=== PATIENT | male | born 1980 | race Caucasian/White ===

== ENCOUNTER 2024-01-03 00:36 | Emergency (ER) | payer SELFPAY ==
[2024-01-03 00:36] VITALS: BMI 32.1
--- NOTE | 2024-01-03 00:55 | ECG_ITS ---
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
--- NOTE | 2024-01-03 00:58 | ED_ITS ---
HPI - Chest Pain 2 General: Chief Complaint: Chest Pain Stated Complaint: Shoulder and Neck Pain Time Seen by Provider: 01/03/24 00:43 History of Present Illness: Healthy 43-year-old man presents the emergency room with neck and shoulder pain and concern for a cardiac event. This started yesterday. Says he has been feeling achy all over but his is concerned this might be his heart. No real chest pain. No abdominal pain. No nausea or vomiting. Review of Systems 2 Narrative: Constitutional symptoms: Negative except as documented in HPI. Skin symptoms: Negative except as documented in HPI. Eye symptoms: Negative except as documented in HPI. ENMT symptoms: Negative except as documented in HPI. Respiratory symptoms: Negative except as documented in HPI. Cardiovascular symptoms: Negative except as documented in HPI. Gastrointestinal symptoms: Negative except as documented in HPI. Genitourinary symptoms: Negative except as documented in HPI. Musculoskeletal symptoms: Negative except as documented in HPI. Neurologic symptoms: Negative except as documented in HPI. Psychiatric symptoms: Negative except as documented in HPI. Endocrine symptoms: Negative except as documented in HPI. Physical Exam 2 Narrative: EXAM NARRATIVE: General: Alert, no acute distress. Skin: Warm, dry. Head: Normocephalic, atraumatic. Neck: Supple, trachea midline. Eye: Extraocular movements are intact. Ears, nose, mouth and throat: mucosa moist. Cardiovascular: Regular, Normal peripheral perfusion. Respiratory: Lungs are clear to auscultation, respirations are non-labored, breath sounds are equal, Symmetrical chest wall expansion. Gastrointestinal: Soft, Nontender, Non distended Musculoskeletal: Normal ROM, no deformity. Neurological: Alert and oriented, No focal neurological deficit observed. Psychiatric: Cooperative, appropriate mood and affect MDM - Chest Pain Medical Decision Making Differential diagnosis for patient with chest pain equivalent includes but is not limited to and based on the above HPI, review of systems and physical exam: Pneumonia. unstable angina. angina. Acute coronary syndrome / OK. Pulmonary embolism. Costochondritis / musculoskeletal. Pleurisy. Pericarditis. Esophageal spasm. Pancreatis. Cholecystitis. Orders placed to evaluate differential diagnosis based on the above differential, HPI and physical exam EK. Rate 87. Normal sinus rhythm, No ST-T changes, no ectopy, right bundle branch block, This was reviewed and interpreted by myself the ER physician at 0100 Lab Review: Laboratory results were reviewed and interpreted by myself the emergency room physician. Normal lab work. Troponin negative. Symptoms are not typical of cardiac chest pain and have been present for over a day so I do not feel like a second troponin is necessary tonight. Respiratory panel is negative for Chest x-ray: No acute process. No infiltrate. No pneumothorax. This was reviewed and interpreted by myself the ER physician. I reviewed the patient's medical record. Reexamination: Patient remained stable. No increased work of breathing. No altered mental status. No focal motor deficits. Assessment and plan: Hypertension Shoulder pain ?Patient says his blood pressure is usually up 0.8 goes into the doctor's office. He will follow-up and check blood pressure at home. - Discharged home - Discussed plan with patient. Answered any questions. - Evaluation and treatment of this problem were appropriate in the emergency setting. Lab Data 01/03/24 01:07 01/03/24 01:07 Laboratory Results WBC 7.19 10^3/uL (3.29-11.43) 01/03/24 01:07 RBC 5.77 10^6/uL (3.85-5.65) H 01/03/24 01:07 Hgb 16.10 g/dL (11.27-16.99) 01/03/24 01:07 Hct 48.7 % (37-53) 01/03/24 01:07 MCV 84.4 fl (82-101) 01/03/24 01:07 MCH 27.9 pg (27-33) 01/03/24 01:07 MCHC 33.1 g/dL (30-55) 01/03/24 01:07 RDW 12.6 % (12.1-15.1) 01/03/24 01:07 Plt Count 212 10^3/cmm (157-399) 01/03/24 01:07 MPV 10.3 fL (7.4-10.4) 01/03/24 01:07 Neut % (Auto) 59.5 % 01/03/24 01:07 Lymph % (Auto) 28.2 % 01/03/24 01:07 [place] % (Auto) 9.9 % 01/03/24 01:07 Eos % (Auto) 1.9 % 01/03/24 01:07 Baso % (Auto) 0.4 % 01/03/24 01:07 Neut # (Auto) 4.27 10^3/uL (1.8-7.7) 01/03/24 01:07 Lymph # (Auto) 2.0 10^3/uL (0.8-4.8) 01/03/24 01:07 [place] # (Auto) 0.7 10^3/uL (0.2-0.9) 01/03/24 01:07 Eos # (Auto) 0.1 10^3/uL (0.0-0.8) 01/03/24 01:07 Baso # (Auto) 0.0 10^3/uL (0.0-0.1) 01/03/24 01:07 Nucleated RBC % (auto) 0 % 01/03/24 01:07 Nucleated RBCs # 0.0 /100WBC 01/03/24 01:07 Sodium 139 mmol/L (136-145) 01/03/24 01:07 Potassium 4.2 mmol/L (3.5-5.1) 01/03/24 01:07 Chloride 103 mmol/L (98-107) 01/03/24 01:07 Carbon Dioxide 26 mmol/L (22-29) 01/03/24 01:07 Anion Gap 14.2 (5-19) 01/03/24 01:07 BUN 18 mg/dL (6-20) 01/03/24 01:07 Creatinine 0.9 mg/dL (0.7-1.2) 01/03/24 01:07 GFR Calculation 91.7 mL/min (90-130) 01/03/24 01:07 Glucose 110 mg/dL (65-115) 01/03/24 01:07 Calculated Osmolality 291 mOsm/kg (285-295) 01/03/24 01:07 Calcium 8.5 mg/dL (8.5-10.5) 01/03/24 01:07 Total Bilirubin 0.7 mg/dL (0.15-1.2) 01/03/24 01:07 AST 28 U/L (0-40) 01/03/24 01:07 ALT 32 U/L (0-41) 01/03/24 01:07 Alkaline Phosphatase 98 U/L (40-130) 01/03/24 01:07 Troponin T Baseline 9 ng/L (0-15) 01/03/24 01:07 C-Reactive Protein 7.7 mg/L (0.0-4.9) H 01/03/24 01:07 Total Protein 7.0 g/dL (6.6-8.7) 01/03/24 01:07 Albumin 4.6 g/dL (3.5-5.2) 01/03/24 01:07 Globulin 2.4 g/dL (1.3-4.6) 01/03/24 01:07 Coronavirus (PCR) Negative (Negative) 01/03/24 01:28 Influenza A (PCR) Negative (Negative) 01/03/24 01:28 Influenza Type B (PCR) Negative (Negative) 01/03/24 01:28 RSV (PCR) Negative (Negative) 01/03/24 01:28 XR interpretation done by ED provider, pending radiology final review Discharge Plan Discharge Patient Disposition: Home Clinical Impression: Shoulder pain Condition: Stable Discharge Orders: Discharge ED (Routine); Ordered 01/03/24 Ordered By: Isaura Franco Discharge Diet: Usual diet Discharge Activity: Increase activity as tolerated Patient Instructions: Thoracic Pain (ED), Noncardiac Chest Pain (ED) Activity Restrictions/Additional Instructions: Thank you for choosing [facility] for your healthcare needs today. Please realize this is an emergency room and that we are providing you with a medical screening exam and this may not be complete and all inclusive of all the testing and or work up that you may need to determine your ailment or severity of your illness. You have been screened and evaluated and felt safe for discharge. Health conditions do change or evolve sometimes and as such it is important that you follow up with your Primary Doctor to be re checked, 3-5 days is a general good time frame for follow up. 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
[2024-01-03 01:13] LABS: Basophils % 0.4 %; Eosinophils # 0.1 10^3/uL (0.0-0.8); Eosinophils % 1.9 %; Hematocrit 48.7 % (37-53); Lymphocytes % 28.2 %; Mean Corpuscular HGB Conc 33.1 g/dL (30-55); Mean Corpuscular Hemoglobin 27.9 pg (27-33); Mean Corpuscular Volume 84.4 fl (82-101); Mean Platelet Volume 10.3 fL (7.4-10.4); Monocytes # 0.7 10^3/uL (0.2-0.9); Monocytes % 9.9 %; Neutrophils # 4.27 10^3/uL (1.8-7.7); Neutrophils % 59.5 %; Nucleated Red Blood Cells % 0 %; Platelet Count 212 10^3/cmm (157-399); Red Blood Count 5.77 10^6/uL (3.85-5.65); Red Cell Distribution Width 12.6 % (12.1-15.1); White Blood Count 7.19 10^3/uL (3.29-11.43)
--- NOTE | 2024-01-03 01:15 | XRR_ITS ---
PROCEDURE INFORMATION: Exam: XR Chest Exam date and time: 01/03/2024 1:32 AM Age: 43 years old Clinical indication: Other: Chest, neck and shoulder pain, no injury; Additional info: Chest pain TECHNIQUE: Imaging protocol: Radiologic exam of the chest. Views: 1 view. COMPARISON: No relevant prior studies available. FINDINGS: Lungs: Minimal left lower lobe atelectasis. No consolidation. Pleural spaces: Unremarkable. No pleural effusion. No pneumothorax. Heart/Mediastinum: Unremarkable. No cardiomegaly. Bones/joints: Unremarkable. XR/XR chest 1V portable [id number] IMPRESSION: No acute findings.
[2024-01-03 01:26] VITALS: BP 163/94; PULSE 82; O2SAT 94
[2024-01-03 01:31] LABS: Troponin(5th) Baseline 9 ng/L (0-15)
[2024-01-03 01:32] LABS: Alanine Aminotransferase 32 U/L (0-41); Albumin Level 4.6 g/dL (3.5-5.2); Alkaline Phosphatase 98 U/L (40-130); Aspartate Amino Transferase 28 U/L (0-40); Blood Urea Nitrogen 18 mg/dL (6-20); C Reactive Protein 7.7 mg/L (0.0-4.9); Calcium 8.5 mg/dL (8.5-10.5); Carbon Dioxide 26 mmol/L (22-29); Chloride 103 mmol/L (98-107); Creatinine Clr Calc Pharmacy 128.7561; Globulin 2.4 g/dL (1.3-4.6); Glomerular Filtration Rate 91.7 mL/min (90-130); Glucose 110 mg/dL (65-115); Osmolality Calculated 291 mOsm/kg (285-295); Sodium 139 mmol/L (136-145); Total Bilirubin 0.7 mg/dL (0.15-1.2)
[2024-01-03 01:45] VITALS: BP 168/108; PULSE 79; O2SAT 98
[2024-01-03 01:45] LABS: Anion Gap 14.2 (5-19); Potassium 4.2 mmol/L (3.5-5.1)
[2024-01-03 02:06] LABS: Covid PCR NEGATIVE (Negative); Influenza A NEGATIVE (Negative); Influenza B NEGATIVE (Negative); Respiratory Syncytial Virus Ce NEGATIVE (Negative)
[2024-01-03 02:15] VITALS: BP 154/104; PULSE 65; O2SAT 98
[2024-01-03] MEDS: ketorolac 30 mg/mL INJ IVP (02:41)
[2024-01-03 02:52] VITALS: BP 168/102; PULSE 75; O2SAT 98
== END 2024-01-03 02:53 | disposition home or self-care (01) ==
PROVIDERS: Emergency Provider Emergency Medicine
DX: M25.519 Pain in unspecified shoulder (principal); I45.10 Unspecified right bundle-branch block; Z11.52 Encounter for screening for COVID-19
CPT/HCPCS: 0241U; 71045; 80053; 84484; 85025; 86140; 93005; 96374; 99285; J1885

== ENCOUNTER 2024-09-18 06:55 | Emergency (ER) | payer SELFPAY ==
[2024-09-18 07:06] VITALS: BP 204/135; PULSE 96; RESP 17; TEMP 37; O2SAT 98; BMI 34.8
--- NOTE | 2024-09-18 07:22 | W.ED.SKABFB ---
HPI - Skin/Abscess/Foreign Bdy General: Chief complaint: Skin/Abscess/Foreign Body Stated complaint: lt arm inj Time Seen by Provider: 09/18/24 06:57 History of Present Illness: 44-year-old male presents emergency room complaining of a large blister on forearm along the ulnar ridge. Patient has been here for a while history of various treatments he has been on [id number] antibiotics started off with significant pimple he put some topical garlic ointment on and developed blister. Associated symptoms: Deny chills or fever(s) Related Data Previous Rx's ?Medication ?Instructions ?Recorded mupirocin 2 % topical ointment 1 applic topical BID #15 grams 09/18/24 ([facility]) Allergies Allergy/AdvReac Type Severity Reaction Status Date / Time No Known Allergies Allergy Verified 09/18/24 07:08 Review of Systems Const: Denies: fever(s) or chills Card: Denies: chest pain Resp: Denies: dyspnea Musc: Denies: neck pain or back pain Skin/Breast: Reports: rash Physical Exam Const: COMMON NORMALS: no acute distress GENERAL APPEARANCE: cooperative and comfortable ORIENTATION/CONSCIOUSNESS: Yes awake, Yes oriented to person, Yes oriented to place and Yes oriented to time HENMT: COMMON NORMALS: normocephalic, atraumatic and hearing grossly normal bilaterally HEAD & SCALP: normocephalic and atraumatic Resp: COMMON NORMALS: normal respiratory effort, No retractions, No use of accessory muscles and clear to auscultation bilaterally AUSCULTATION: clear to auscultation bilaterally Cardio: COMMON NORMALS: regular rate, regular rhythm and No murmurs present (Cardio) RATE: regular rate RHYTHM: regular rhythm Extremity: COMMON NORMALS: normal to inspection, capillary refill normal, no clubbing, cyanosis or edema, no calf tenderness and no pedal edema Neuro: SENSORIUM/ORIENTATION: Yes oriented to person, Yes oriented to place and Yes oriented to time Skin: OTHER: Solitary vesicles slightly reddened edges at the center is a open comedone is mildly inflamed no. Draining Procedures Abscess I/D Site: upper extremity Side (if applicable): left Technique: other (Incised with the bevel of 18-gauge needle) Amount of fluid expressed (mL): 3 Packing used?: none Course Vital Signs: Vital signs: Vital Signs Temperature 98.6 F 09/18/24 07:06 Pulse Rate 96 09/18/24 07:06 Respiratory Rate 17 09/18/24 07:06 Blood Pressure 204/135 09/18/24 07:06 Pulse Oximetry 98 09/18/24 07:06 Oxygen Delivery Me thod Room Air 09/18/24 07:06 MDM - Skin/Abscess/Foreign Bdy Medicial Decision Making Blister in the removed and drained culture obtained. Comedone drained. Patient has other small open comedones noninflamed in the region. 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 Think the vesicles from chemical irritant from the topical garlic solution he was putting on it. Of asked him to avoid garlic solution culture was done we will start him on mupirocin to the area follow-up with his primary care doctor as needed Medical Records I reviewed the patient's medical records. Lab Data I reviewed the patient's lab results. No radiology studies performed this visit Discharge Plan Discharge Patient Disposition: Home Clinical Impression: Open comedone, Chemical burn of left forearm Condition: Stable Prescriptions: New mupirocin [Centany] 2 % ointment 1 applic topical BID Qty: 15 0RF Discharge Orders: Discharge ED (Routine); Ordered 09/18/24 Ordered By: Vinny Carcamo Discharge Diet: Usual diet Discharge Activity: Resume usual activity Patient Instructions: Opioid Safety, Pain Management, Patient Portal & Sandeep Instructions Activity Restrictions/Additional Instructions: Thank you for choosing [facility] for your healthcare needs today. It is very important that you follow up as instructed or that you return to the Emergency Department should you have concerns or if your condition changes or worsens in any way. You were seen in the emergency room with complaint of irritation on your left forearm. The blistering is likely a chemical burn reaction to the topical garlic that you were using. Would avoid using this topical medication. We deroofed the blister and cultured the fluids. Underlying there is an open comedone which was drained. Apply the topical antibiotic ointment until the wound has healed. Avoid laying that portion of your forearm on a solid surface for prolonged periods of time. Suspect positioning of the arm while driving may be precipitating the comedones. 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
== END 2024-09-18 08:01 | disposition home or self-care (01) ==
PROVIDERS: Emergency Provider Family Medicine
DX: L70.0 Acne vulgaris (principal); T22.012A Burn of unspecified degree of left forearm, initial encounter; X58.XXXA Exposure to other specified factors, initial encounter
CPT/HCPCS: 10060; 87070; 99283